=== PATIENT | male | born 1960 | race African-American/Black ===

== ENCOUNTER 2017-04-01 11:40 | Emergency (ER) | payer SELFPAY | END 2017-04-01 13:25 | disposition left against medical advice (07) | LOC: ERS 11:40 | DX: Z53.21 Procedure and treatment not carried out due to patient leaving prior to being seen by health care provider (principal) | CPT/HCPCS: 94760 ==

== ENCOUNTER 2018-06-15 11:35 | Outpatient (CLI) | payer OTHER ==
--- NOTE | 2018-06-15 12:55 | RAD ---
LUMBAR SPINE 2 VIEWS: HISTORY: Low back pain. FINDINGS: There are 5 lumbar-type vertebrae. Pedicles are intact. Vertebral body height and alignment are ilya ntained. Mild osteophytosis of the lower facets. Calcification overlies the arterial structures. O steoarthritic change of the hips is partially visualized. IMPRESSION: 1. Mild degenerative changes of the lower lumbar spine. No evidence of compression fracture. 2. Atherosclerosis. POS: [facility]
--- NOTE | 2018-06-15 12:55 | RAD ---
RIGHT SHOULDER THREE VIEWS: HISTORY: Right shoulder injury. FINDINGS: Acromioclavicular and glenohumeral alignment are maintained, with mild osteophytosis. No acute fract ure, dislocation, or aggressive osseous erosions. IMPRESSION: Very mild osteoarthritic changes, right shoulder. POS: [facility]
--- NOTE | 2018-06-15 13:17 | RAD ---
CHEST 2 VIEWS: HISTORY: Dyspnea. Disability exam. FINDINGS: Cardiac silhouette and pulmonary vasculature are unremarkable. Mediastinum is midline. No confluent airspace consolidation, pneumothorax, or pleural fluid are apparent. Metallic ring overlies the lef t nipple. IMPRESSION: No active cardiopulmonary abnormalities are demonstrated. POS: [facility]
== END 2018-06-15 11:36 | disposition home or self-care (01) ==
LOC: BICRAD 11:35
PROVIDERS: ATTEND Internal Medicine
DX: Z02.71 Encounter for disability determination (principal); M19.011 Primary osteoarthritis, right shoulder; M47.816 Spondylosis without myelopathy or radiculopathy, lumbar region; I70.90 Unspecified atherosclerosis
CPT/HCPCS: 71046; 72100